=== PATIENT | male | born 1980 | race Caucasian/White ===

== ENCOUNTER 2019-05-27 23:05 | Emergency (ER) | payer SELFPAY ==
[~2019-05-27] VITALS: Ht 170.2 cm; Wt 133.8 kg
--- NOTE | 2019-05-27 23:15 | NUR ---
ED Nurse Note: PATIENT AMBULATED TO ED C/O SWOLLEN TONSILS AND RIGHT EARACHE X 1 DAY. Pt is AO x 4times, VSS, on room air no distress. ERMD seen Pt at bedside.
[2019-05-27 23:46] VITALS: BP 149/100
[2019-05-28] MEDS ORDERED: Augmentin 875mg Tab ORAL ONE
[2019-05-28] MEDS ORDERED: Dexamethasone 4mg/ml vial IM ONE
[2019-05-28] MEDS ORDERED: AUGMENTIN 875-1 EAC1 ORAL (00:02)
[2019-05-28] MEDS ORDERED: IBUPROFEN600 MG ORAL (00:02)
[2019-05-28 00:18] VITALS: BP 149/100
--- NOTE | 2019-05-28 00:19 | NUR ---
ER DISCHARGE NOTE: Patient is cleared to be discharged per ERMD, pt is aox4, on room air, with stable vital signs. pt was given dc and prescription instructions, pt was able to verbalize understanding, pt id band removed without complications. pt is able to ambulate with steady gait. pt took all belongings.
--- NOTE | 2019-05-28 02:07 | Emergency Room Report ---
History of Present Illness General Chief Complaint: Earache Source: Patient Present Illness HPI 38-year-old male presents ED for evaluation. Complaining of sore throat x1 day. Pain is throbbing, 9 out of 10, nonradiating. Difficult to swallow. Denies fevers or chills. Denies cough. Denies sick contacts. He traveled here from [place]. No other aggravating relieving factors. Denies any other associated symptoms Allergies: Coded Allergies: No Known Allergies (Unverified , 05/27/19) Patient History Past Medical History: asthma Past Surgical History: none Pertinent Family History: none Social History: Denies: smoking, alcohol use, drug use Immunizations: UTD Reviewed Nursing Documentation: PMH: Agreed; PSxH: Agreed Nursing Documentation-PMH Past Medical History: No History, Except For Hx Asthma: Yes Review of Systems All Other Systems: negative except mentioned in HPI Physical Exam Vital Signs Date Time Temp Pulse Resp B/P (MAP) Pulse Ox O2 Delivery O2 Flow Rate FiO2 05/27/19 23:09 97.9 71 14 157/102 (120) 96 Room Air Sp02 EP Interpretation: reviewed, normal General Appearance: no apparent distress, alert, GCS 15, non-toxic Head: normocephalic Eyes: bilateral eye normal inspection, bilateral eye PERRL ENT: hearing grossly normal, no angioedema, normal voice, TMs + canals normal, pharyngeal erythema, tonsillar exudate Neck: full range of motion, supple, no meningismus, supple/symm/no masses Respiratory: normal inspection Cardiovascular #1: normal inspection Gastrointestinal: normal inspection Rectal: deferred Genitourinary: no CVA tenderness Musculoskeletal: normal inspection Neurologic: alert, oriented x3, responsive, motor strength/tone normal, sensory intact, speech normal Psychiatric: normal inspection Skin: no rash Lymphatic: adenopathy Medical Decision Making Diagnostic Impression: Primary Impression: Pharyngitis Qualified Codes: J02.9 - Acute pharyngitis, unspecified ER Course Hospital Course 38 year-old male presents to ED complaining of sore throat Differential diagnoses include: URI, pharyngitis, otitis media Clinical course Patient placed on stretcher. After initial history, physical exam reveals a male in no acute distress. Bilateral TM unremarkable. There is pharyngeal erythema w/ tonsillar exudates. Noted lymphadenopathy. Clinical findings consistent with pharyngitis. discussed findings with patient. Will discharge with antibiotics. Given Augmentin here. Decadron given. Safe for discharge for close outpatient follow -up. Will provide referrals Diagnosis - pharyngitis Stable and discharged home with prescriptions for Motrin, augmentin. Instructed to followup with PMD. return to ED if symptoms recur or worsen Last Vital Signs Date Time Temp Pulse Resp B/P (MAP) Pulse Ox O2 Delivery O2 Flow Rate FiO2 05/28/19 00:18 98.5 79 16 149/100 99 Room Air Status: improved Disposition: HOME, SELF-CARE Condition: Stable Scripts Ibuprofen* (MOTRIN*) 600 Mg Tablet 600 MG ORAL Q8H PRN for For Pain, #30 TAB 0 Refills Prov: Robert Haley MD 05/28/19 Amoxicillin/Potassium Clav 875-125* (AUGMENTIN 875-125 TABLET*) 1 Each Tablet 1 TAB ORAL TWICE A DAY, #14 TAB Prov: Robert Haley MD 05/28/19 Referrals: NOT CHOSEN IPA/,REFERRING (PCP) Macy Kirby MD [facility] Patient Instructions: Pharyngitis, [id number] Robert Haley MD May 28, 2019 02:07
== END 2019-05-28 00:19 | disposition home or self-care (01) ==
LOC: EMR 23:48
DX: J02.9 Acute pharyngitis, unspecified (principal)
CPT/HCPCS: 96372; 99283; J1100